=== PATIENT | female | born 1985 ===

== ENCOUNTER 2018-02-10 15:18 | Outpatient (CLI) | payer OTHER ==
[~2018-02-10] VITALS: Ht 170.2 cm; Wt 74.8 kg
== END 2018-02-10 15:35 | disposition home or self-care (01) ==
LOC: OFIC 805 15:18
DX: H60.592 Other noninfective acute otitis externa, left ear (principal); R22.1 Localized swelling, mass and lump, neck

== ENCOUNTER → 2018-02-28 | Outpatient (CLI) | payer OTHER | END | disposition home or self-care (01) | LOC: MAMO-SONO 10:15 → SONOGRAMA 10:46 | DX: R22.1 Localized swelling, mass and lump, neck (principal) ==

== ENCOUNTER 2018-03-10 13:29 | Outpatient (CLI) | payer OTHER ==
[~2018-03-10] VITALS: Ht 152.4 cm; Wt 74.8 kg
== END 2018-03-10 13:45 | disposition home or self-care (01) ==
LOC: OFIC 805 13:29
DX: H60.8X2 Other otitis externa, left ear (principal); R22.1 Localized swelling, mass and lump, neck